=== PATIENT | female | born 1965 | race Caucasian/White ===

== ENCOUNTER 2024-01-11 15:36 | Emergency (ER) | payer OTHER, SELFPAY ==
[2024-01-11 16:05] VITALS: BP 130/82; PULSE 89; RESP 18; TEMP 36.8; O2SAT 97; BMI 39.9
--- NOTE | 2024-01-11 17:37 | ED.LOWEXIN ---
HPI - Extremity Injury (Lower) General Date Seen: 01/11/24 Chief Complaint: Extremity Pain/Injury, Lower Stated Complaint: R big toe injury Time Seen by Provider: 01/11/24 17:15 Source: patient Mode of arrival: ambulatory Limitations: no limitations History of Present Illness HPI Narrative: Patient is a 58-year-old female history of diabetes presenting after injuring her right big toenail. She states she was camping when she caught it on something causing part of it to rip off. She states she has done this in the past and waited 2 weeks to be seen by her senior loss control specialist and then was told she needed to be seen sooner. She states at that time her senior loss control specialist remove the nail start her on antibiotics. She tried calling Podiatry for this 1 but cannot give and for several weeks so she can to emergency department. Denies any other injuries. Denies any toe pain other than just underneath the nail. Is not concerned about fractures. Has full sensation of her foot. Related Data Home Medications ?Medication ?Instructions ?Recorded ?Confirmed gabapentin 300 mg capsule 300 mg PO DAILY 01/11/24 01/11/24 metformin 1,000 mg tablet 1,000 mg PO BID 01/11/24 01/11/24 Allergies Allergy/AdvReac Type Severity Reaction Status Date / Time No Known Drug Allergies Allergy Verified 01/11/24 16:03 Review of Systems Narrative: Pertinent systems reviewed and were negative unless stated in HPI PFSH PFSH Social History Smoking Status: Never smoker How often do you have a drink containing alcohol: never AUDIT-C Alcohol total score: 0 Non-prescribed substance use: denies use Exam Narrative: Exam Narrative: Const: Well-nourished, Well-developed, in mild distress Eyes: PERRL, no conjunctival injection, and symmetrical lids HENT: Atraumatic external nose and ears. Moist mucous membranes. Extremities: Right great toenail partially lifted off from nail bed appear MSK:Extremities w/o deformity, Normal Active ROM Skin: Warm, Dry. No rashes or lesions. Neuro: Normal Muscle tone, No focal neurological deficits. Psych: Awake, Alert, & Oriented x3. Appropriate mood and affect. Const: Vital Signs, click to edit/add: Vital Signs - 24 hr 01/11/24 16:05 Temperature 98.2 F Pulse Rate [Pulse Oximeter] 89 Respiratory Rate 18 Blood Pressure [Ri ght Upper Arm] 130/82 Pulse Oximetry 97 Oxygen Delivery Me thod Room Air Course Vital Signs Vital signs: Initial Vital Signs Temperature 98.2 F 01/11/24 16:05 Temperature Source Temporal Artery Scan 01/11/24 16:05 Pulse Rate 89 01/11/24 16:05 Pulse Rhythm Regular 01/11/24 16:05 Respiratory Rate 18 01/11/24 16:05 Blood Pressure 130/82 01/11/24 16:05 Blood Pressure Mean 98 01/11/24 16:05 Blood Pressure Position Sitting 01/11/24 16:05 Pulse Oximetry 97 01/11/24 16:05 Oxygen Delivery Method Room Air 01/11/24 16:05 Vital Signs Temperature 98.2 F 01/11/24 16:05 Pulse Rate 89 01/11/24 16:05 Respiratory Rate 18 01/11/24 16:05 Blood Pressure 130/82 01/11/24 16:05 Pulse Oximetry 97 01/11/24 16:05 Oxygen Delivery Method Room Air 01/11/24 16:05 Temperature 98.2 F 01/11/24 16:05 Pulse Rate 89 01/11/24 16:05 Respiratory Rate 18 01/11/24 16:05 Blood Pressure 130/82 01/11/24 16:05 Pulse Oximetry 97 01/11/24 16:05 Oxygen Delivery Method Room Air 01/11/24 16:05 MDM - Extremity Injury (Lower) MDM Narrative Medical decision making narrative: Patient is a 58-year-old female with diabetes presenting for partial nail avulsion. She states last time this happened she had to have it removed by the senior loss control specialist. I will remove it at this time. Digital nerve block was done. Nail was removed successfully. I did place it back within the nail bed though to help keep the [place] open. Some Dermabond was placed on the proximal portion to keep it in place at this time. She also states last time she was placed on antibiotics. Considering her history of diabetes and the fact that this is on her toe I will place her on Cipro. She is currently camping it told her to keep the area clean as possible. Discharge Plan Discharge Clinical Impression: Avulsion of nail Patient Disposition: Home, Self-Care Condition: Stable Instructions: Nail Avulsion (ED) Additional Instructions: Take the Cipro as directed. Use it twice daily for 5 days. They will before tablets left over. Follow-up with the senior loss control specialist as soon as she can not to re-evaluate the nail. Return for new or worsening symptoms. Try to keep the nail in place to help new nail grow Prescriptions: No Action metformin 1,000 mg tablet 1,000 mg PO BID gabapentin 300 mg capsule 300 mg PO DAILY Follow Up/Referrals: Provider,Not a Local [Primary Care Provider] - Stand Alone [facility] Instructions Procedures Nail Procedure Location (toes): first digit Procedure performed: nail avulsion Procedure successful: Yes Patient tolerated procedure: well and no complications
[2024-01-11] MEDS: LIDOCAINE 1% 5 ml (pf) 5 ML VIAL INJECTION (18:03)
== END 2024-01-11 18:13 | disposition home or self-care (01) ==
PROVIDERS: Emergency Provider Student in an Organized Health Care Education/Training Program
DX: S91.201A Unspecified open wound of right great toe with damage to nail, initial encounter (principal)
CPT/HCPCS: 11730; 99282; 99283